=== PATIENT | female | born 1985 | race Caucasian/White ===

== ENCOUNTER 2025-08-25 10:57 | Outpatient (AMB) | payer OTHER, SELFPAY ==
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
[2025-08-25 11:03] VITALS: BP 118/74; PULSE 110; RESP 16; O2SAT 98; BMI 28.9
== END 2025-08-25 11:48 | disposition home or self-care (01) ==
LOC: HO.PMC 10:58
PROVIDERS: PCP Family Medicine; Visit Provider Registered Nurse Emergency
DX: M47.812 Spondylosis without myelopathy or radiculopathy, cervical region (principal); M79.7 Fibromyalgia; M54.2 Cervicalgia; G89.4 Chronic pain syndrome; M54.12 Radiculopathy, cervical region
CPT/HCPCS: 99204; G2211